=== PATIENT | female | born 1955 | race Caucasian/White ===

== ENCOUNTER → 2022-04-24 | Outpatient (CLI) | payer MEDICARE ==
[2022-04-24 14:06] LABS: HEMOGLOBIN 14.4 gm/dl (12.3-15.3); RED BLOOD COUNT 4.8 M/UL (4.00-5.10); WHITE BLOOD COUNT 8.5 K/UL (4.5-11.0)
[2022-04-25 07:10] LABS: CREATININE, URINE 188.5 mg/dL (Not Estab.)
== END ==
LOC: LAB 13:15
PROVIDERS: Nurse Practitioner Family
DX: Z00.00 Encounter for general adult medical examination without abnormal findings (principal); M54.12 Radiculopathy, cervical region; Z13.220 Encounter for screening for lipoid disorders; R73.9 Hyperglycemia, unspecified; G44.89 Other headache syndrome; R53.83 Other fatigue; E55.9 Vitamin D deficiency, unspecified
CPT/HCPCS: 36415; 80053; 81001; 82043; 82570; 83036; 84439; 84443; 85025

== ENCOUNTER → 2022-06-04 | Outpatient (CLI) | payer MEDICARE | LOC: EXRD 14:01 | DX: R06.02 Shortness of breath (principal); M25.552 Pain in left hip; R91.8 Other nonspecific abnormal finding of lung field; R31.9 Hematuria, unspecified; M50.123 Cervical disc disorder at C6-C7 level with radiculopathy; M43.12 Spondylolisthesis, cervical region; M47.814 Spondylosis without myelopathy or radiculopathy, thoracic region; M43.16 Spondylolisthesis, lumbar region; M51.16 Intervertebral disc disorders with radiculopathy, lumbar region | CPT/HCPCS: 71046; 72040; 72070; 72100; 73502; 74018 ==